=== PATIENT | male | born 1995 | race African-American/Black ===

== ENCOUNTER 2021-11-21 21:41 | Emergency (ER) | payer MEDICAID ==
[~2021-11-21] VITALS: Ht 190.5 cm; Wt 90.7 kg
[2021-11-21 21:47] VITALS: BP 108/60
--- NOTE | 2021-11-21 21:47 | NUR ---
PT OFFLOADED TO LOBBY TO A/W BED
[2021-11-21] MEDS ORDERED: IBUPROFEN 800 MG TAB PO ONE (23:35)
--- NOTE | 2021-11-22 00:34 | NUR ---
PATIENT ELOPED FROM FACILITY. DISCHARGE INSTRUCTIONS NOT GIVEN TO PATIENT. DR. CAMEJO NOTIFIED.
--- NOTE | 2021-11-22 00:34 | NUR ---
CALLED PT FROM INSIDE LOBBY AND OUTSIDE FOR WOUND CARE, NO RESPONSE FROM PT
== END 2021-11-22 00:34 | disposition left against medical advice (07) ==
LOC: MED 21:41
DX: S80.912A Unspecified superficial injury of left knee, initial encounter (principal); Z98.890 Other specified postprocedural states; X58.XXXA Exposure to other specified factors, initial encounter; Y93.89 Activity, other specified; Y92.89 Other specified places as the place of occurrence of the external cause; Y99.8 Other external cause status
CPT/HCPCS: 73562; 99283